=== PATIENT | female | born 1955 | race Caucasian/White ===

== ENCOUNTER 2019-03-03 10:58 | Day surgery (SDC) | payer OTHER ==
[2019-02-24 15:32] VITALS: BMI 33.6
--- NOTE | 2019-02-27 15:59 | HP ---
Admitting History and Physical - Primary Care Physician PCP: Jorden Adams - Admission Chief Complaint: Right breast atypia History of Present Illness: 63 year old postmenapausal female with family H/O breast cancer and was found to have some right breast assymetry at 12:00 on screening mammogram 01/2019 which persisted on x veiws and Us showed 5 mm are corresponding to mammogram finding. US core bx left breast 02/11/2019 showed Atypical duct hyperplasia at 12 :00. History Source: Patient Limitations to Obtaining History: No Limitations - Past Medical History Cardiovascular: Yes: HTN - Past Surgical History Past Surgical History: Yes: (x3) Additional Past Surgical History: Mohs surgery basal cell - Smoking History Smoking history: Never smoked Have you smoked in the past 12 months: No - Alcohol/Substance Use Hx Alcohol Use: No Home Medications - Allergies Allergies/Adverse Reactions: Allergies Allergy/AdvReac Type Severity Reaction Status Date / Time No Known Allergies Allergy Verified 02/24/19 15:24 - Home Medications Home Medications: Ambulatory Orders Metoprolol Succinate [Toprol Xl] 12.5 mg PO DAILY 02/24/19 Family Disease History - Family Disease History Family Disease History: CA: Grandparent (pat GM breast ca 60'd), Mother (CRC 72 ) Other Family History: pat cousin breast ca 45/50. mat cousin breast and ovarian ca 55/63 Physical Examination Breast(s): Yes: Other ( mod D sized cup breast Resolving bruising from bx right breast 12:00 no palpable masses in either breast no adenopathy) Problem List - Problems (1) Atypical ductal hyperplasia of right breast Code(s): N60.91 - UNSPECIFIED BENIGN MAMMARY DYSPLASIA OF RIGHT BREAST Assessment/Plan Right breast wide excision with mammogram needle localization
[2019-03-03] MEDS ORDERED: BETAXOLOL HCL 0.25% OPHTHALMIC 10 ML DROPSBTL ONE (11:44)
[2019-03-03] MEDS ORDERED: BACITRACIN/POLYMYXIN OPH OINT 3.5 GM TUBE ONE (11:44)
[2019-03-03] MEDS ORDERED: EPI-SHUGARCAINE (EPINEPHRINE 0.025% & LIDOCAINE-PF 0.75%) 4ML ONE (11:45)
[2019-03-03] MEDS ORDERED: TETRACAINE 0.5% OPHTH SOLN 2 ML BOTTLE ONE (11:45)
[2019-03-03] MEDS ORDERED: POVIDONE-IODINE 5% OPHTHALMIC PREP 30 ML SOLUTION ONE (11:45)
[2019-03-03] MEDS ORDERED: NEO/POLYMYX B SULF/DEXAMETH OPHTHALMIC 5ML BOTTLE ONE (11:45)
[2019-03-03] MEDS ORDERED: ACETYLCHOLINE 1:100 INTRA-OCUL 20 MG/2 ML KIT ONE (11:45)
[2019-03-03] MEDS ORDERED: BUPIVACAINE HCL/PF 2.5 MG/ML - 30 ML VIAL IJ ONE (15:24)
[2019-03-03] MEDS ORDERED: LIDOCAINE HCL 1% PRESERVATIVE FREE - 30ML VIAL ONE (15:24)
[2019-03-03] MEDS ORDERED: MIDAZOLAM HCL 2 MG/2 ML SINGLE DOSE VIAL ONE ×2 (15:35→15:36)
[2019-03-03] MEDS ORDERED: PROPOFOL 20 ML ONE (15:35)
[2019-03-03] MEDS ORDERED: LIDOCAINE HCL 1%, 10 MG/ML (20ML VIAL) INF ONE (15:51)
[2019-03-03] MEDS ORDERED: BUPIVACAINE HCL/PF 0.25% (2.5MG/ML) 10 ML VIAL IJ ONE (16:21)
[2019-03-03 16:55] VITALS: TEMP 97.8
[2019-03-03] MEDS ORDERED: oxyCODONE HCL 5 MG TABLET PO PRN (16:55)
[2019-03-03] MEDS ORDERED: ONDANSETRON 4 MG/2 ML VIAL IVPUSH PRN (16:58)
[2019-03-03] MEDS ORDERED: KETOROLAC TROMETHAMINE 30 MG/1 ML VIAL IVPUSH PRN (16:58)
[2019-03-03] MEDS ORDERED: DEXTROSE 5%-0.45% SALINE 1,000 ML IV SCH (17:00)
[2019-03-03 17:44] VITALS: BP 146/78; PULSE 71
--- NOTE | 2019-03-04 11:55 | OP ---
DATE OF OPERATION: 03/03/2019 PREOPERATIVE DIAGNOSIS: Right breast atypical duct hyperplasia. POSTOPERATIVE DIAGNOSIS: Right breast atypical duct hyperplasia. PROCEDURE: Right breast partial mastectomy with mammographic needle localization. ANESTHESIA: Local with IV sedation. SURGEON: Ute Aviles MD COMPLICATIONS: None. Briefly, the patient is a 63-year-old, G3, P3, postmenopausal white female with a strong family history with her paternal grandmother from breast cancer in her 60s, as well as 2 paternal cousins who had breast cancer at age 45 and age 50. Her maternal cousin had ovarian cancer at age 55 and breast cancer at age 63. Her mother from colon cancer at age 72. The patient underwent a mammography in January 2019, showing some asymmetry in the right breast 12 o'clock region, and ultrasound showed a corresponding 5-mm region which was biopsied under ultrasound guidance, came back showing atypical duct hyperplasia. Slides were reviewed and confirmed the atypia, and wide excision was recommended. She was brought in for the procedure on March 03, 2019. She first underwent a needle localization in radiology, was brought to the holding area. In the holding area, site verification was made, and informed consent was obtained. She was brought into the operating room, laid on the OR table in a supine position. Venodynes were placed on the lower extremities, and she received IV sedation. Next, 1 g of Ancef was given prior to the incision. The right breast was sterilely prepped and draped in usual fashion with the wire prepped in the field. Then, 1% lidocaine was given in a curvilinear fashion around the needle localization site at the 12 o'clock region in the right breast. Curvilinear incision was made, and dissection was undertaken around the needle localization site. The breast tissue was completely removed from around the wire, and the specimen was removed with the wire in the middle of the specimen. The specimen was oriented with a long lateral/short superior suture, and specimen radiographs showed removal of the clip in question. Hemostasis was achieved. The breast parenchyma was then reapproximated using 2-0 plain suture. The skin was closed using interrupted 3-0 deep dermal Vicryl suture and a running 4-0 subcuticular Biosyn suture. Mastisol and Steri-Strips were applied over the wound. A compressive dressing placed over this. The patient tolerated the procedure well, without difficulty, was awake and alert at the end of the procedure and brought back to Ambulatory Surgery postoperatively where she will be discharged home the same day once discharge criteria are met. She is to follow up in the office in 1 week for a formal wound and pathology check. Estimated blood loss was minimal, and all sponge and needle counts were correct at the end of the case. UTE AVIELS M.D. [id number]
--- NOTE | 2019-03-05 17:17 | PATH ---
Surgical Pathology Report Patient Name: ROSELINE FENG [facility]. Rec. #: [id number] /Age/Gender: 1955 (Age: 63) / F Account: [id number] Location: [facility] Taken: 03/03/2019 Received: 03/03/2019 Reported: 03/05/2019 Physicians: Joon Aviles M.D. Specimen(s) Received RIGHT BREAST WIDE EXCISION Clinical History Right breast ADH on core biopsy Final Diagnosis BREAST, RIGHT, WIDE EXCISION: BENIGN BREAST PARENCHYMA WITH FIBROCYSTIC AND COLUMNAR CELL CHANGES WITH ASSOCIATED MICROCALCIFICATIONS IN A BACKGROUND OF FIBROELASTOTIC STROMA SUGGESTIVE OF RADIAL SCAR. Comment: Immunohistochemical stains performed and interpreted at [facility] for p63 and [facility] highlights myoepithelial cells. Prior material is noted. Electronically Signed Tarah Campbell M.D. Gross Description Received in formalin, labeled "right breast wide excision," is a 4.3 x 3.7 x 2.8 cm. patel-yellow, irregular, portion of fibroadipose tissue with a needle localization wire present. There is a short suture marking the superior aspect and a long suture marking the lateral aspect, per the surgeon. There is no skin or nipple present. The specimen is inked as follows: superior and lateral blue; inferior green; medial yellow; anterior red; deep black. The specimen is serially sectioned from lateral to medial. Sectioning reveals a 0.8 x 0.5 x 0.5 cm patel, indurated lesion. The lesion is 0.5 cm from the deep margin and 0.5 cm from the inferior margin. Instrument Technician sections are submitted in 6 cassettes as follows: 1-full face section of lesion with inferior and deep margins; 2-additional full face section of lesion with inferior and deep margins; 3-superior margin; 4-anterior margin; 5-medial margin; 6-lateral margin. Time to formalin fixation: 5 minutes Total formalin fixation time: Approximately 26 hours. /03/04/2019 [facility]03/04/2019
== END 2019-03-03 17:40 | disposition home or self-care (01) ==
LOC: FASU 10:58
PROVIDERS: ATTEND Surgery Surgical Oncology
PROC: 0HBT0ZZ Excision of Right Breast, Open Approach (ICD-10-PCS; principal; 2019-03-03 14:30)
DX: N60.91 Unspecified benign mammary dysplasia of right breast (principal); Z80.3 Family history of malignant neoplasm of breast; N64.89 Other specified disorders of breast
CPT/HCPCS: 19281; 88307-TC; 88341-TC; 88342-TC